=== PATIENT | male | born 1990 | race Caucasian/White ===

== ENCOUNTER → 2018-03-19 | Outpatient (CLI) | payer OTHER ==
--- NOTE | 2018-03-19 14:07 | RADIOLOGY REPORT (SQ) ---
EXAM DESCRIPTION: U/S RETROPERITON (RENAL/AORTA) COMPLETED DATE/TIME: 03/19/2018 11:45 am REASON FOR STUDY: I70.1ATHEROSCLEROSIS OF RENAL ARTERY I70.1 ATHEROSCLEROSIS OF RENAL ARTERY COMPARISON: None. TECHNIQUE: Dynamic and static grayscale images acquired of the kidneys and bladder and recorded on P ACS. Additional selected color Doppler and spectral images recorded. LIMITATIONS: None. FINDINGS: RIGHT KIDNEY: Normal size. Normal echogenicity. No solid or suspicious masses. No hydronep hrosis. No calcifications. LEFT KIDNEY: Normal size. Normal echogenicity. No solid or suspicious masses. No hydronephrosis. No calcifications. BLADDER: No masses. OTHER FINDINGS: No other significant finding. IMPRESSION: NORMAL RENAL AND BLADDER ULTRASOUND. TECHNICAL DOCUMENTATION: JOB ID: [id number] [employer]- All Rights Reserved Reading location - IP/workstation name: [id number]
--- NOTE | 2018-03-19 14:08 | RADIOLOGY REPORT (SQ) ---
EXAM DESCRIPTION: U/S [facility] DUPLEX ART/FERNANDEZ FLOW COMPLETED DATE/TIME: 03/19/2018 11:45 am REASON FOR STUDY: I70.1 I70.1 ATHEROSCLEROSIS OF RENAL ARTERY COMPARISON: None. TECHNIQUE: Realtime and static grayscale images acquired. Selected color Doppler, velocities and spe ctral images recorded. LIMITATIONS: None. FINDINGS: RIGHT KIDNEY: RENAL ARTERY VELOCITIES: 94 Cm/sec. Segmental artery velocity 61 cm/sec. RENAL VEIN: Color doppler flow present, patent. VELOCITY RATIO: 0.9. Normal waveforms. KIDNEY: Normal size. No significant pathology. LEFT KIDNEY: RENAL ARTERY VELOCITIES: 77 cm/sec. Segmental artery velocity 60 cm/sec. RENAL VEIN: Color doppler flow present, patent. VELOCITY RATIO: 0.7. Normal waveforms. KIDNEY: Normal size. No significant pathology. BLADDER: Normal. OTHER: No other significant finding. IMPRESSION: NO DOPPLER EVIDENCE OF HEMODYNAMICALLY SIGNIFICANT RENAL ARTERY STENOSIS. COMMENT: NORMAL RENAL ARTERY/AORTA VELOCITY RATIO IS LESS THAN OR EQUAL TO 3.5. TECHNICAL DOCUMENTATION: JOB ID: [id number] [employer]- All Rights Reserved Reading location - IP/workstation name: [facility]-RR
== END ==
LOC: RAD 11:26
PROVIDERS: ATTEND Student in an Organized Health Care Education/Training Program
DX: I70.1 Atherosclerosis of renal artery (principal); I10 Essential (primary) hypertension
CPT/HCPCS: 76770; 93976

== ENCOUNTER → 2018-05-17 | Outpatient (CLI) | payer OTHER ==
--- NOTE | 2018-05-17 08:33 | RADIOLOGY REPORT (SQ) ---
EXAM DESCRIPTION: U/S [facility] DUPLEX ART/FERNANDEZ FLOW; U/S RETROPERITON (RENAL/AORTA) COMPLETED DATE/TIME: 05/17/2018 8:20 am REASON FOR STUDY: JJ (I70.1) I70.1 ATHEROSCLEROSIS OF RENAL ARTERY COMPARISON: 03/19/2018 renal ultrasound and renal artery Doppler TECHNIQUE: Realtime and static grayscale images acquired. Selected color Doppler, velocities and spe ctral images recorded. LIMITATIONS: Renal artery origins off the aorta were difficult to visualize FINDINGS: RIGHT KIDNEY: RENAL ARTERY VELOCITIES: At the hilum 75 cm/sec. Segmental artery velocity 77 cm/sec. RENAL VEIN: Color doppler flow present, patent. VELOCITY RATIO: 0 point. Normal waveforms. KIDNEY: Right kidney is 11.6 cm in length. No significant pathology. LEFT KIDNEY: RENAL ARTERY VELOCITIES: 99 cm/sec. Segmental artery velocity 68 cm/sec. RENAL VEIN: Color doppler flow present, patent. VELOCITY RATIO: 0.8. Normal waveforms. KIDNEY: Left kidney is 12 cm in length. No significant pathology. BLADDER: Decompressed, no gross bladder calculi OTHER: Echogenic liver from diffuse hepatocellular disease or fatty infiltration IMPRESSION: NO DOPPLER EVIDENCE OF HEMODYNAMICALLY SIGNIFICANT RENAL ARTERY STENOSIS. ECHOGENIC LIVER FROM FATTY INFILTRATION OR DIFFUSE HEPATOCELLULAR DISEASE COMMENT: NORMAL RENAL ARTERY/AORTA VELOCITY RATIO IS LESS THAN OR EQUAL TO 3.5. TECHNICAL DOCUMENTATION: JOB ID: [id number] [employer]- All Rights Reserved Reading location - IP/workstation name: [id number]
--- NOTE | 2018-05-17 08:33 | RADIOLOGY REPORT (SQ) ---
EXAM DESCRIPTION: U/S [facility] DUPLEX ART/FERNANDEZ FLOW; U/S RETROPERITON (RENAL/AORTA) COMPLETED DATE/TIME: 05/17/2018 8:20 am REASON FOR STUDY: JJ (I70.1) I70.1 ATHEROSCLEROSIS OF RENAL ARTERY COMPARISON: 03/19/2018 renal ultrasound and renal artery Doppler TECHNIQUE: Realtime and static grayscale images acquired. Selected color Doppler, velocities and spe ctral images recorded. LIMITATIONS: Renal artery origins off the aorta were difficult to visualize FINDINGS: RIGHT KIDNEY: RENAL ARTERY VELOCITIES: At the hilum 75 cm/sec. Segmental artery velocity 77 cm/sec. RENAL VEIN: Color doppler flow present, patent. VELOCITY RATIO: 0 point. Normal waveforms. KIDNEY: Right kidney is 11.6 cm in length. No significant pathology. LEFT KIDNEY: RENAL ARTERY VELOCITIES: 99 cm/sec. Segmental artery velocity 68 cm/sec. RENAL VEIN: Color doppler flow present, patent. VELOCITY RATIO: 0.8. Normal waveforms. KIDNEY: Left kidney is 12 cm in length. No significant pathology. BLADDER: Decompressed, no gross bladder calculi OTHER: Echogenic liver from diffuse hepatocellular disease or fatty infiltration IMPRESSION: NO DOPPLER EVIDENCE OF HEMODYNAMICALLY SIGNIFICANT RENAL ARTERY STENOSIS. ECHOGENIC LIVER FROM FATTY INFILTRATION OR DIFFUSE HEPATOCELLULAR DISEASE COMMENT: NORMAL RENAL ARTERY/AORTA VELOCITY RATIO IS LESS THAN OR EQUAL TO 3.5. TECHNICAL DOCUMENTATION: JOB ID: [id number] [employer]- All Rights Reserved Reading location - IP/workstation name: [email or web address]
== END ==
LOC: RAD 07:23
PROVIDERS: ATTEND Internal Medicine Clinical Cardiac Electrophysiology
DX: I70.1 Atherosclerosis of renal artery (principal)
CPT/HCPCS: 76770; 93976